=== PATIENT | female | born 1980 | race Caucasian/White ===

== ENCOUNTER → 2021-07-29 | Emergency (ER) | payer OTHER ==
[~2021-07-29] VITALS: Ht 162.6 cm; Wt 76.7 kg
[~2021-07-29] MED LIST: NAPROSYN375 MG PO; PAXIL10 MG PO; XANAX 0.5 MG0.5 MG; ZOFRAN4 MG PO
[2021-07-29 16:22] VITALS: BP 120/80
== END ==
LOC: ER 16:21
DX: U07.1 COVID-19 (principal); M79.7 Fibromyalgia; Z79.899 Other long term (current) drug therapy; Z88.1 Allergy status to other antibiotic agents; Z88.6 Allergy status to analgesic agent; Z88.8 Allergy status to other drugs, medicaments and biological substances